=== PATIENT | female | born 1985 | race Caucasian/White ===

== ENCOUNTER 2017-04-27 21:34 | Emergency (ER) | payer OTHER ==
[~2017-04-27] VITALS: Ht 162.6 cm; Wt 77.1 kg
[~2017-04-27 21:34] MED LIST: MOTRIN
[2017-04-27 21:40] VITALS: BP 145/95
--- NOTE | 2017-04-27 21:54 | NUR ---
PT.AMBULATED TO ED [facility]
--- NOTE | 2017-04-27 21:55 | NUR ---
31/F CAME IN W C/O 09/27 SUPRAPUBIC PAIN, CONSTANT RADIATING TO LOWER ADB AND DYSURIA X 2 DAYS. DENIES HEMATURIA, FEVER/CHILLS, REPORTS N/VX1. ABD SOFT, ROUND, +TENDERNESS TO SUPRAPUBIC AREA. PMH: HEP C, ASTHMA
[2017-04-27 22:34] LABS: APPEARANCE,URINE CLEAR (CLEAR); BILIRUBIN,URINE NEGATIVE (NEGATIVE); BLOOD, URINE 1+ (NEGATIVE); COLOR,URINE YELLOW (YELLOW); LEUKOCYTE ESTERASE ,URINE NEGATIVE (NEGATIVE); NITRITE, URINE NEGATIVE (NEGATIVE); UGLUCOSE NEGATIVE (NEGATIVE)
[2017-04-27 22:55] VITALS: BP 128/76
--- NOTE | 2017-04-27 22:55 | NUR ---
Patient discharged with v/s stable. Written and verbal after care instructions given and explained. Patient alert, oriented and verbalized understanding of instructions. Ambulatory with steady gait. All questions addressed prior to discharge. ID band removed. Patient advised to follow up with PMD. Rx of BACTRIM DS given. Patient educated on indication of medication including possible reaction and side effects. Opportunity to ask questions provided and answered.
[2017-04-27 22:56] LABS: RBC,URINE 0-5 (RARE) /HPF (0-5)
== END 2017-04-27 22:55 | disposition home or self-care (01) ==
LOC: MED 21:34
DX: N39.0 Urinary tract infection, site not specified (principal); J45.909 Unspecified asthma, uncomplicated; F17.200 Nicotine dependence, unspecified, uncomplicated; Z88.0 Allergy status to penicillin
CPT/HCPCS: 81001; 81025; 87086; 87186; 99284

== ENCOUNTER 2017-08-06 19:31 | Emergency (ER) | payer OTHER ==
[~2017-08-06] VITALS: Ht 162.6 cm; Wt 90.7 kg
[2017-08-06 19:34] VITALS: BP 150/90
[2017-08-06] MEDS ORDERED: KETOROLAC 60 MG/2 ML VIAL IM ONE (19:55)
[2017-08-06 20:23] VITALS: BP 131/83
== END 2017-08-06 20:23 | disposition home or self-care (01) ==
LOC: MED 19:31
DX: N39.0 Urinary tract infection, site not specified (principal); J45.909 Unspecified asthma, uncomplicated; Z86.19 Personal history of other infectious and parasitic diseases; Z88.0 Allergy status to penicillin
CPT/HCPCS: 81002; 81025; 96372; 99283; J1885

== ENCOUNTER 2017-09-02 23:40 | Emergency (ER) | payer OTHER ==
[~2017-09-02] VITALS: Ht 162.6 cm; Wt 90.7 kg
[2017-09-02 23:52] VITALS: BP 130/72
[2017-09-03] MEDS ORDERED: ONDANSETRON 4 MG/2 ML VIAL IVP ONE (00:05)
[2017-09-03] MEDS ORDERED: NACL 0.9% 1,000 ML IV ONE (00:05)
[2017-09-03] MEDS ORDERED: MORPHINE SULFATE 4 MG/ML SYR IVP ONE (00:05)
[2017-09-03] MEDS ORDERED: KETOROLAC 30 MG/ML VIAL IVP ONE (00:10)
[2017-09-03 00:22] LABS: BASOPHILS # (AUTO) 0.1 K/uL (0.00-0.22); BASOPHILS % (AUTO) 0.5 % (0.0-2.0); EOSINOPHILS # (AUTO) 0.9 K/uL (0-0.4); EOSINOPHILS % (AUTO) 7.5 % (0.0-4.0); HEMATOCRIT 37.7 % (36-48); HEMOGLOBIN 12.2 g/dL (12.0-16.0); LYMPHOCYTES # (AUTO) 3.2 K/uL (2.5-16.5); LYMPHOCYTES % (AUTO) 27.3 % (20.5-51.1); MEAN CORPUSCULAR HEMOGLOBIN 29 pg (27-31); MEAN CORPUSCULAR HGB CONC 32 g/dL (33-37); MEAN CORPUSCULAR VOLUME 88.5 fL (80-94); MONOCYTES # (AUTO) 0.9 K/uL (0.8-1.0); MONOCYTES % (AUTO) 7.3 % (1.7-9.3); NEUTROPHILS # (AUTO) 6.7 K/uL (1.8-7.7); NEUTROPHILS % (AUTO) 57.4 % (42.2-75.2); PLATELET COUNT (AUTO) 290 K/uL (140-450); RED BLOOD CELL COUNT(AUTO) 4.26 MIL/uL (4.20-5.40); RED CELL DISTRIBUTION WIDTH 12.5 % (11.6-13.7); WHITE BLOOD COUNT (AUTO) 11.7 K/uL (4.8-10.8)
[2017-09-03 00:32] LABS: ANION GAP 18.1 (8-16); CARBON DIOXIDE 22.3 mmol/L (21-32); POTASSIUM 3.4 mmol/L (3.5-5.1)
[2017-09-03 00:38] LABS: ALBUMIN 3.9 g/dL (3.4-5.0); TOTAL BILIRUBIN 0.2 mg/dL (0.0-1.0)
[2017-09-03 00:48] LABS: APPEARANCE,URINE CLEAR (CLEAR); BILIRUBIN,URINE NEGATIVE (NEGATIVE); BLOOD, URINE TRACE-L (NEGATIVE); COLOR,URINE YELLOW (YELLOW); LEUKOCYTE ESTERASE ,URINE 1+ (NEGATIVE); NITRITE, URINE NEGATIVE (NEGATIVE); PH,URINE 6.5 (5.0-9.0); UGLUCOSE NEGATIVE (NEGATIVE)
[2017-09-03 00:54] LABS: RBC,URINE 0-5 (RARE) /HPF (0-5)
[2017-09-03 02:18] VITALS: BP 130/72
== END 2017-09-03 02:18 | disposition home or self-care (01) ==
LOC: MED 23:40
DX: R10.9 Unspecified abdominal pain (principal); R11.2 Nausea with vomiting, unspecified; J45.909 Unspecified asthma, uncomplicated; Z88.0 Allergy status to penicillin; Z90.89 Acquired absence of other organs
CPT/HCPCS: 36415; 74176; 80053; 81001; 81025; 83690; 85025; 87086; 96361; 96374; 96375; 99285; J1885; J2405

== ENCOUNTER 2017-09-04 19:14 | Emergency (ER) | payer OTHER ==
[~2017-09-04] VITALS: Ht 162.6 cm; Wt 89.8 kg
[2017-09-04 19:27] VITALS: BP 116/77
[2017-09-04] MEDS ORDERED: KETOROLAC 30 MG/ML VIAL IM ONE (20:20)
[2017-09-04 20:55] LABS: HEMOGLOBIN 11.9 g/dL (12.0-16.0); RED BLOOD CELL COUNT(AUTO) 4.14 MIL/uL (4.20-5.40); WHITE BLOOD COUNT (AUTO) 9.4 K/uL (4.8-10.8)
[2017-09-04 20:56] LABS: BASOPHILS % (AUTO) 0.1 % (0.0-2.0); EOSINOPHILS % (AUTO) 9.6 % (0.0-4.0); HEMATOCRIT 36.9 % (36-48); LYMPHOCYTES % (AUTO) 28.5 % (20.5-51.1); MEAN CORPUSCULAR HEMOGLOBIN 29 pg (27-31); MEAN CORPUSCULAR HGB CONC 32 g/dL (33-37); MEAN CORPUSCULAR VOLUME 89.2 fL (80-94); MONOCYTES % (AUTO) 6.8 % (1.7-9.3); PLATELET COUNT (AUTO) 277 K/uL (140-450); RED CELL DISTRIBUTION WIDTH 12.9 % (11.6-13.7)
[2017-09-04 20:57] LABS: EOSINOPHILS # (AUTO) 0.9 K/uL (0-0.4); LYMPHOCYTES # (AUTO) 2.7 K/uL (2.5-16.5); MONOCYTES # (AUTO) 0.6 K/uL (0.8-1.0); NEUTROPHILS # (AUTO) 5.2 K/uL (1.8-7.7)
[2017-09-04 21:01] LABS: APPEARANCE,URINE CLEAR (CLEAR); BILIRUBIN,URINE NEGATIVE (NEGATIVE); BLOOD, URINE TRACE (NEGATIVE); COLOR,URINE YELLOW (YELLOW); PH,URINE 6.5 (5.0-9.0); UGLUCOSE NEGATIVE (NEGATIVE)
[2017-09-04 21:02] LABS: LEUKOCYTE ESTERASE ,URINE 1+ (NEGATIVE); NITRITE, URINE NEGATIVE (NEGATIVE)
[2017-09-04 21:08] LABS: ANION GAP 14.3 (8-16); CARBON DIOXIDE 25.8 mmol/L (21-32); CREATININE 0.8 mg/dL (0.6-1.3); POTASSIUM 4.1 mmol/L (3.5-5.1)
[2017-09-04 21:09] LABS: ALBUMIN 3.7 g/dL (3.4-5.0); TOTAL BILIRUBIN 0.2 mg/dL (0.0-1.0)
[2017-09-04 21:21] LABS: RBC,URINE 0-5 (RARE) /HPF (0-5); WBC,URINE 0-5 (RARE) /HPF (0-5)
[2017-09-04 21:45] VITALS: BP 114/74
== END 2017-09-04 21:45 | disposition home or self-care (01) ==
LOC: MED 19:14
DX: N39.0 Urinary tract infection, site not specified (principal); R51 Headache; J45.909 Unspecified asthma, uncomplicated; Z90.89 Acquired absence of other organs; Z88.0 Allergy status to penicillin
CPT/HCPCS: 36415; 80053; 81001; 81025; 83690; 85025; 87086; 96372; 99284; J1885; Q0163

== ENCOUNTER 2017-11-11 11:01 | Emergency (ER) | payer OTHER ==
[~2017-11-11] VITALS: Ht 162.6 cm; Wt 89.8 kg
[2017-11-11 11:07] VITALS: BP 120/75
--- NOTE | 2017-11-11 11:17 | NUR ---
PT TAKEN VIA WHEELCHAIR TO BED 3
--- NOTE | 2017-11-11 11:18 | NUR ---
32YO F BIB SELF C/O RT FOOT PAIN X 3 DAYS AND BLADDER INCONTINECE X 1 MONTH. +CMS, THROBBING SHARP 8/10 PAIN WHILE WALKING, PT STATES SHE DID A 5K MARATHON AND FOOT STARTED HURTING AN HOUR LATER. PAIN FROM MID ARCH TO HEEL. ER MD MADE AWARE WILL CONTINUE TO MONITOR HX; DENIES RX; DENIES
--- NOTE | 2017-11-11 11:28 | NUR ---
DR NESS EVALUATING AT BEDSIDE
[2017-11-11] MEDS ORDERED: KETOROLAC 60 MG/2 ML VIAL IM ONE (11:30)
[2017-11-11 12:08] VITALS: BP 122/73
--- NOTE | 2017-11-11 12:08 | NUR ---
Patient discharged with v/s stable. Written and verbal after care instructions given and explained. Patient alert, oriented and verbalized understanding of instructions. Ambulatory with steady gait. All questions addressed prior to discharge. ID band removed. Patient advised to follow up with PMD. Rx of MOTRIN, CIPRO given. Patient educated on indication of medication including possible reaction and side effects. Opportunity to ask questions provided and answered.
== END 2017-11-11 12:08 | disposition home or self-care (01) ==
LOC: MED 11:01
DX: S90.32XA Contusion of left foot, initial encounter (principal); N39.0 Urinary tract infection, site not specified; J45.909 Unspecified asthma, uncomplicated; Z90.89 Acquired absence of other organs; Z88.0 Allergy status to penicillin; X58.XXXA Exposure to other specified factors, initial encounter; Y93.02 Activity, running; Y92.89 Other specified places as the place of occurrence of the external cause; Y99.8 Other external cause status
CPT/HCPCS: 81002; 81025; 96372; 99283; J1885

== ENCOUNTER 2017-12-04 11:35 | Emergency (ER) | payer OTHER ==
[~2017-12-04] VITALS: Ht 162.6 cm; Wt 90.3 kg
[2017-12-04 11:40] VITALS: BP 107/68
--- NOTE | 2017-12-04 11:50 | NUR ---
PT. CAME INTO THE ED DUE TO COUGH AND SORE THROAT X 4 DAYS. PT. STATES " I HAVE HAD THIS COUGH AND BEEN NAUSEOUS X 4 DAYS AND IT DOESNT GO AWAY". PT VOMITED ONCE THIS MORNING , DENIES ANY BLOOD IN VOMIT. RR EVEN AND UNLABORED. LS: CLEAR BILAT. UPON AUSCULTATION. AFEBRILE AT THIS TIME. EPIGASTRIC PAIN PER PT DUE TO "NAUSEA". 7/10 PAIN IN THROAT THAT IS THROBBING AND NON RADIATING. ER MD NOTIFIED. SAFETY PRECAUTIONS IMPLEMENTED. WILL CONTINUE TO MONITOR.
[2017-12-04] MEDS ORDERED: ONDANSETRON 4 MG ODT PO ONE (11:55)
--- NOTE | 2017-12-04 13:09 | NUR ---
PT. RESTING COMFORTABLY IN BED, RR EVEN AND UNLABORED. WILL CONTINUE TO MONITOR
[2017-12-04] MEDS ORDERED: DEXAMETHASONE 10 MG/ML VIAL IM ONE (13:20)
--- NOTE | 2017-12-04 14:14 | NUR ---
PENDING D/C ; DISCHARGE PAPERWORK NOT AVAILABLE AT THIS TIME.
[2017-12-04 14:34] VITALS: BP 135/79
--- NOTE | 2017-12-04 14:36 | NUR ---
Patient discharged with v/s stable. Written and verbal after care instructions given and explained. Patient alert, oriented and verbalized understanding of instructions. Ambulatory with steady gait. All questions addressed prior to discharge. ID band removed. Patient advised to follow up with PMD. Rx of MEDROL, IBUPROFEN, ZITHROMAX, ROBITUSSIN given. Patient educated on indication of medication including possible reaction and side effects. Opportunity to ask questions provided and answered.
== END 2017-12-04 14:36 | disposition home or self-care (01) ==
LOC: MED 11:35
DX: J20.9 Acute bronchitis, unspecified (principal); J45.909 Unspecified asthma, uncomplicated; Z88.0 Allergy status to penicillin
CPT/HCPCS: 87081; 96372; 99284; J1100; Q0162

== ENCOUNTER 2018-02-24 13:36 | Emergency (ER) | payer OTHER ==
[~2018-02-24] VITALS: Ht 162.6 cm; Wt 90.4 kg
[2018-02-24 14:23] VITALS: BP 141/56
[2018-02-24 16:36] VITALS: BP 134/78
== END 2018-02-24 16:35 | disposition home or self-care (01) ==
LOC: MED 13:36
DX: J02.9 Acute pharyngitis, unspecified (principal); R52 Pain, unspecified; R19.7 Diarrhea, unspecified; J45.909 Unspecified asthma, uncomplicated; Z88.0 Allergy status to penicillin; Z79.1 Long term (current) use of non-steroidal anti-inflammatories (NSAID)
CPT/HCPCS: 36415; 81025; 87081; 87804; 99283

== ENCOUNTER 2018-04-11 09:25 | Day surgery (SDC) | payer OTHER ==
[~2018-04-11] VITALS: Ht 162.6 cm; Wt 88.0 kg
[2018-04-11] MEDS ORDERED: LIDOCAINE 2% 1000 MG/50 ML VIAL INJ ONE (10:46)
[2018-04-11] MEDS ORDERED: fentaNYL 0.05 MG/ML VIAL ONE (10:49)
[2018-04-11] MEDS ORDERED: fentaNYL 0.05 MG/ML VIAL IVP ONE ×2 (11:15→11:35)
== END 2018-04-11 12:25 | disposition home or self-care (01) ==
LOC: MMU 09:25 → MDS 09:25
PROVIDERS: ATTEND Internal Medicine Gastroenterology
DX: B18.2 Chronic viral hepatitis C (principal); J45.909 Unspecified asthma, uncomplicated; E66.9 Obesity, unspecified; E78.5 Hyperlipidemia, unspecified; F12.11 Cannabis abuse, in remission; M41.9 Scoliosis, unspecified; Z68.33 Body mass index [BMI] 33.0-33.9, adult; Z98.890 Other specified postprocedural states; Z87.891 Personal history of nicotine dependence; Z88.0 Allergy status to penicillin; Z90.49 Acquired absence of other specified parts of digestive tract
CPT/HCPCS: 47000; 76942; 81025; 88307; 88313; J2001; J3010; Q0092

== ENCOUNTER 2018-12-30 11:23 | Emergency (ER) | payer OTHER ==
[~2018-12-30] VITALS: Ht 162.6 cm; Wt 87.5 kg
[2018-12-30 11:34] VITALS: BP 103/55
--- NOTE | 2018-12-30 11:38 | NUR ---
PATIENT AMBULATED TO BED 5.
--- NOTE | 2018-12-30 12:04 | NUR ---
Patient being evaluated by DR MORRELL at bedside.
[2018-12-30] MEDS ORDERED: predniSONE 20 MG TAB PO ONE (12:05)
[2018-12-30] MEDS ORDERED: ALBUTEROL 0.083% 2.5 MG/3 ML NEBU INH ONE (12:05)
[2018-12-30] MEDS ORDERED: IPRATROPIUM 0.02% 0.5 MG/2.5 ML NEBU INH ONE (12:05)
--- NOTE | 2018-12-30 12:11 | NUR ---
PT PRESENTS TO THE ED WITH C/O CHEST DISCOMFORT/TIGHTNESS X 1 DAY. PT STATES THAT SHE HAD AN ASTHMA ATTACK LAST NIGHT. PT STATES THAT HER CHEST IS SORE AND "TIGHT" AND RATES PAIN 8/10 AT THIS TIME. PT REPORTS TAKING NO MEDICATION TODAY. PT STATES THAT SHE HAS HAD DIARRHEA X 4 DAYS, DENEIS N/V. BOWEL SOUNDS ACTIVE ALL 4 QUADRANTS, LAST BM 12/29/18. PT REPORTS HAVING A PRODUCTIVE COUGH WITH GREEN PHLEGM. PT POSITIONED FOR COMFORT, BED RAIL UP X 1. ER MD AWARE OF PT STATUS. ALLERGY: PENICILLIN HX: ASTHMA RX: ALBUTEROL
--- NOTE | 2018-12-30 12:12 | NUR ---
RESPIRATORY AT BEDSIDE.
[2018-12-30] MEDS ORDERED: ACETAMINOPHEN 325 MG TAB PO ONE (12:15)
--- NOTE | 2018-12-30 13:10 | NUR ---
PT SLEEPING, ABLE TO VISUALIZE RISE AND FALL OF CHEST. WILL CONTINUE TO MONITOR.
--- NOTE | 2018-12-30 14:02 | NUR ---
Patient discharged with v/s stable. Written and verbal after care instructions given and explained. Patient alert, oriented and verbalized understanding of instructions. Ambulatory with steady gait. All questions addressed prior to discharge. ID band removed. Patient advised to follow up with PMD. Rx of PROMETHAZINE AND PREDNISONE given. Patient educated on indication of medication including possible reaction and side effects. Opportunity to ask questions provided and answered.
[2018-12-30 14:03] VITALS: BP 103/55
== END 2018-12-30 14:02 | disposition home or self-care (01) ==
LOC: MED 11:23
DX: J45.909 Unspecified asthma, uncomplicated (principal); Z88.0 Allergy status to penicillin
CPT/HCPCS: 94640; 99283; J7512; J7613; J7644

== ENCOUNTER 2019-02-06 13:18 | Emergency (ER) | payer OTHER ==
[~2019-02-06] VITALS: Ht 162.6 cm; Wt 84.4 kg
[2019-02-06 13:28] VITALS: BP 111/72
--- NOTE | 2019-02-06 13:42 | NUR ---
PATIENT PRESENTS TO ED WITH NON-PRURITIC RASHES ON RIGHT FLANK AREA. PAIN DESCRIBED SHARP, 9/10. NO MEDICATIONS TAKEN. PT ALSO COMPLAINS OF FLU-LIKE SYMPTOMS AND PRODUCTIVE COUGH. DENIES FEVER AND ANY URINARY PROBLEMS. UPON ASSESSMENT, MULTIPLE ROUND LESIONS ON RIGHT FLANK ARE SCALY AND DRY WITH NO DISCHARGE NOTED. LUNGS CLEAR BL; HR EVEN AND REGULAR; VSS; PATIENT POSITIONED FOR COMFORT; HOB ELEVATED; BEDRAILS UP X2; BED DOWN. ER MD MADE AWARE OF PT STATUS. PMH: ASTHMA, HEP C, HERPES. PT UNABLE TO RECALL HX OF CHICKEN POX MEDS: ALBUTEROL ALLERGY: PENICILLIN
[2019-02-06] MEDS ORDERED: KETOROLAC 30 MG/ML VIAL IM ONE (14:00)
[2019-02-06 14:38] VITALS: BP 111/72
== END 2019-02-06 14:38 | disposition home or self-care (01) ==
LOC: MED 13:18
DX: B02.9 Zoster without complications (principal); J45.909 Unspecified asthma, uncomplicated; Z88.0 Allergy status to penicillin
CPT/HCPCS: 96372; 99283; J1885

== ENCOUNTER 2019-03-06 13:55 | Emergency (ER) | payer OTHER ==
[~2019-03-06] VITALS: Ht 162.6 cm; Wt 81.6 kg
[2019-03-06 14:01] VITALS: BP 113/56
--- NOTE | 2019-03-06 14:05 | NUR ---
STREP THROAT SWAB COLLECTED
--- NOTE | 2019-03-06 14:10 | NUR ---
33/F BIB SELF C/O SORE THROAT, BODY ACHES X 2 DAYS. DENIES N/V/D; SKIN IS PINK/WARM/DRY; AAOX4 WITH EVEN AND STEADY GAIT; LUNGS CLEAR BL; HR EVEN AND REGULAR; PT DENIES ANY FEVER, CP, SOB, OR COUGH AT THIS TIME; PATIENT STATES PAIN OF 9/10 AT THIS TIME. PATIENT POSITIONED FOR COMFORT; HOB ELEVATED; BEDRAILS UP X1; BED DOWN. ER MD MADE AWARE OF PT STATUS.
[2019-03-06] MEDS ORDERED: IBUPROFEN 600 MG TAB PO ONE (14:25)
[2019-03-06 14:50] VITALS: BP 117/62
--- NOTE | 2019-03-06 14:50 | NUR ---
Patient discharged with v/s stable. Written and verbal after care instructions given and explained. Patient alert, oriented and verbalized understanding of instructions. Ambulatory with steady gait. All questions addressed prior to discharge. ID band removed. Patient advised to follow up with PMD. Rx of PHENOZOPYRIDINE HCL, NITROFURANTOIN & CEPACOL SENSATIONS HYDRA given. Patient educated on indication of medication including possible reaction and side effects. Opportunity to ask questions provided and answered.
== END 2019-03-06 14:50 | disposition home or self-care (01) ==
LOC: MED 13:55
DX: B34.9 Viral infection, unspecified (principal); R30.0 Dysuria; J45.909 Unspecified asthma, uncomplicated; Z88.0 Allergy status to penicillin
CPT/HCPCS: 81002; 81025; 87081; 99283

== ENCOUNTER 2019-03-30 15:24 | Emergency (ER) | payer OTHER ==
[~2019-03-30] VITALS: Ht 160 cm; Wt 83.9 kg
[2019-03-30 15:45] VITALS: BP 116/67
--- NOTE | 2019-03-30 16:18 | NUR ---
33 Y/O FEMALE PRESENTS WITH FLU LIKE SYMPTOMS, ABD PAIN, BODY ACHES, NAUSEA, VOMITING X1 DAY. PT REPORTS THAT EVERYONE IN HER HOUSEHOLD HAS GOTTEN THE FLU. DENIES SOB/CHEST PAIN. PT REPORTS STARTING TO COUGH YESTERDAY ALSO. RESP EVEN AND UNLABORED. LUNG SOUNDS CLEAR IN BILAT LOBES. BOWEL SOUNDS NORMO ACTIVE IN ALL QUADRANTS. CAP REFILL <3. AAOX4. PMH: HEP C NKA
[2019-03-30] MEDS ORDERED: ACETAMINOPHEN EXTRA STRENGTH 500 MG TAB PO ONE (16:30)
[2019-03-30] MEDS ORDERED: ONDANSETRON 4 MG ODT PO ONE (16:30)
[2019-03-30 16:36] VITALS: BP 116/67
--- NOTE | 2019-03-30 16:37 | NUR ---
Patient discharged with v/s stable. Written and verbal after care instructions given and explained. Patient alert, oriented and verbalized understanding of instructions. Ambulatory with steady gait. All questions addressed prior to discharge. ID band removed. Patient advised to follow up with PMD. Rx of IBUPROFEN, TAMIFLU, PROMETHAZINE, ZOFRAN given. Patient educated on indication of medication including possible reaction and side effects. Opportunity to ask questions provided and answered.
== END 2019-03-30 16:37 | disposition home or self-care (01) ==
LOC: MED 15:24
DX: B34.9 Viral infection, unspecified (principal); J45.909 Unspecified asthma, uncomplicated; Z88.0 Allergy status to penicillin; Z86.19 Personal history of other infectious and parasitic diseases
CPT/HCPCS: 81025; 99283; Q0162

== ENCOUNTER 2019-08-04 13:33 | Emergency (ER) | payer OTHER ==
[~2019-08-04] VITALS: Ht 162.6 cm; Wt 86.2 kg
[2019-08-04 13:53] VITALS: BP 107/71
--- NOTE | 2019-08-04 14:07 | NUR ---
33 Y/O FEMALE FROM HOME C/O ABD PAIN WITH NAUSEA AND VOMITING SINCE YESTERDAY. PT STATES 8/10 SHARP PAIN IN ABD. BOWEL SOUNDS X 4 QUAD. DENIES DIARRHEA. DENIES FEVER. MILD HEADACHE SINCE VOMITING BEGAN. STATES SHE HAS NOT TAKEN ANY MEDICATIONS TODAY. ABD SOFT, ROUND, NONTENDER TO PALP. AWAKE AND ALERT. POSITIONED FOR COMFORT. MEDHX: HEP C ALLERGIES: PENICILLIN
--- NOTE | 2019-08-04 14:20 | NUR ---
DR MORRELL AT BEDSIDE EXAMINING PT
[2019-08-04] MEDS ORDERED: MORPHINE SULFATE 2 MG/ML SYR IVP ONE (14:25)
[2019-08-04] MEDS ORDERED: NACL 0.9% 1,000 ML IV SCH (14:25)
[2019-08-04] MEDS ORDERED: ONDANSETRON 4 MG/2 ML VIAL IVP ONE (14:25)
--- NOTE | 2019-08-04 14:38 | NUR ---
ULTRASOUND AT BEDSIDE
[2019-08-04 15:11] LABS: BASOPHILS % (AUTO) 0.5 % (0.0-2.0); EOSINOPHILS # (AUTO) 1.5 K/uL (0-0.4); EOSINOPHILS % (AUTO) 16.9 % (0.0-4.0); HEMATOCRIT 37.4 % (36-48); LYMPHOCYTES # (AUTO) 2.4 K/uL (2.5-16.5); LYMPHOCYTES % (AUTO) 27.4 % (20.5-51.1); MEAN CORPUSCULAR HEMOGLOBIN 29 pg (27-31); MEAN CORPUSCULAR HGB CONC 32 g/dL (33-37); MEAN CORPUSCULAR VOLUME 91.6 fL (80-94); MONOCYTES # (AUTO) 0.6 K/uL (0.8-1.0); MONOCYTES % (AUTO) 7.4 % (1.7-9.3); NEUTROPHILS # (AUTO) 4.2 K/uL (1.8-7.7); NEUTROPHILS % (AUTO) 47.8 % (42.2-75.2); PLATELET COUNT (AUTO) 282 K/uL (140-450); RED BLOOD CELL COUNT(AUTO) 4.09 MIL/uL (4.20-5.40); RED CELL DISTRIBUTION WIDTH 14.1 % (11.6-13.7); WHITE BLOOD COUNT (AUTO) 8.7 K/uL (4.8-10.8)
[2019-08-04 15:23] LABS: BILIRUBIN,URINE NEGATIVE (NEGATIVE); BLOOD, URINE 3+ (NEGATIVE); COLOR,URINE RED (YELLOW); LEUKOCYTE ESTERASE ,URINE NEGATIVE (NEGATIVE); NITRITE, URINE NEGATIVE (NEGATIVE); PH,URINE 5.5 (5.0-9.0); UGLUCOSE NEGATIVE (NEGATIVE)
[2019-08-04 15:24] LABS: APPEARANCE,URINE CLEAR (CLEAR)
[2019-08-04 15:31] LABS: ALBUMIN 3.5 g/dL (3.4-5.0); ANION GAP 11.5 (8-16); CARBON DIOXIDE 27.2 mmol/L (21-32); CREATININE 0.7 mg/dL (0.6-1.3); POTASSIUM 3.7 mmol/L (3.5-5.1); TOTAL BILIRUBIN 0.3 mg/dL (0.0-1.0)
--- NOTE | 2019-08-04 15:31 | NUR ---
PT STATES DECREASE IN PAIN AFTER MORPHINE IV PUSH. /10 TOLERABLE ABD PAIN AT THIS TIME.
[2019-08-04 16:51] VITALS: BP 112/69
--- NOTE | 2019-08-04 16:51 | NUR ---
Patient discharged with v/s stable. Written and verbal after care instructions given and explained. Patient alert, oriented and verbalized understanding of instructions. Ambulatory with steady gait. All questions addressed prior to discharge. ID band removed. Patient advised to follow up with PMD. Rx of OMEPRAZOLE 40MG AND ZOFRAN 4MG given. Patient educated on indication of medication including possible reaction and side effects. Opportunity to ask questions provided and answered.
[2019-08-04 17:27] LABS: RBC,URINE NONE SEEN /HPF (0-5); WBC,URINE NONE SEEN /HPF (0-5)
== END 2019-08-04 16:51 | disposition home or self-care (01) ==
LOC: MED 13:33
DX: K29.70 Gastritis, unspecified, without bleeding (principal); R11.2 Nausea with vomiting, unspecified; R51 Headache; J45.909 Unspecified asthma, uncomplicated; Z88.0 Allergy status to penicillin; Z86.19 Personal history of other infectious and parasitic diseases
CPT/HCPCS: 36415; 76705; 80053; 81001; 81025; 83605; 83690; 85025; 87040; 96361; 96374; 96375; 99284; J2270; J2405; J7030; Q0092

== ENCOUNTER 2019-08-14 14:56 | Emergency (ER) | payer OTHER, SELFPAY ==
[~2019-08-14] VITALS: Ht 162.6 cm; Wt 81.6 kg
[2019-08-14 15:09] VITALS: BP 101/60
[2019-08-14 15:57] VITALS: BP 101/60
--- NOTE | 2019-08-14 15:57 | NUR ---
PT SEEN AND D/C BY KATIANA LOWE. NO NURSING CARE GIVEN.
--- NOTE | 2019-08-14 15:57 | NUR ---
Patient discharged with v/s stable. Written and verbal after care instructions given and explained. Patient alert, oriented and verbalized understanding of instructions. Ambulatory with steady gait. All questions addressed prior to discharge. ID band removed. Patient advised to follow up with PMD. Rx of IBUPROFEN AND TASSALON PERLES given. Patient educated on indication of medication including possible reaction and side effects. Opportunity to ask questions provided and answered.
== END 2019-08-14 15:57 | disposition home or self-care (01) ==
LOC: EEVIPCON 14:56 → MED 14:56
DX: J06.9 Acute upper respiratory infection, unspecified (principal); J45.909 Unspecified asthma, uncomplicated; Z88.0 Allergy status to penicillin; Z90.49 Acquired absence of other specified parts of digestive tract
CPT/HCPCS: 99283

== ENCOUNTER 2019-10-14 09:38 | Emergency (ER) | payer OTHER, SELFPAY ==
[~2019-10-14] VITALS: Ht 162.6 cm; Wt 90.7 kg
[2019-10-14 09:41] VITALS: BP 126/69
[2019-10-14] MEDS ORDERED: KETOROLAC 60 MG/2 ML VIAL IM ONE (10:30)
[2019-10-14 10:52] VITALS: BP 126/69
== END 2019-10-14 10:53 | disposition home or self-care (01) ==
LOC: MED 09:38
DX: N93.8 Other specified abnormal uterine and vaginal bleeding (principal); N39.0 Urinary tract infection, site not specified; J45.909 Unspecified asthma, uncomplicated; Z88.0 Allergy status to penicillin; Z90.49 Acquired absence of other specified parts of digestive tract
CPT/HCPCS: 81002; 81025; 96372; 99283; J1885

== ENCOUNTER 2019-11-18 17:28 | Emergency (ER) | payer OTHER, SELFPAY ==
[~2019-11-18] VITALS: Ht 139.7 cm; Wt 99.8 kg
[2019-11-18 17:31] VITALS: BP 129/99
--- NOTE | 2019-11-18 17:35 | NUR ---
PT STATES SHES BEEN HAVING ABNORMAL VAGINAL BLEEDING SINCE JULY DUE TO HER RIGHT OVARIAN CYST, HAS BEEN TAKING 3 PROVERAS DAILY, AND IS SCHEDULED TO HAVE A HYSTERECTOMY DEC 09, BUT PRESENTS TO ER WITH 9/10 SUPRAPUBIC PAIN THAT BEGAN LAST NIGHT. PT STATES TODAY BLEEDING IS SCANT AND ONLY ONE PAD CHANGED TODAY.
[2019-11-18] MEDS: KETOROLAC 60 MG/2 ML VIAL IM ONE ×2 (17:54→18:04)
[2019-11-18 18:04] VITALS: BP 118/89
--- NOTE | 2019-11-18 18:04 | NUR ---
Patient discharged with v/s stable. Written and verbal after care instructions given and explained. Patient alert, oriented and verbalized understanding of instructions. Ambulatory with steady gait. All questions addressed prior to discharge. ID band removed. Patient advised to follow up with PMD. Rx of Naproxen and Macrobid given. Patient educated on indication of medication including possible reaction and side effects. Opportunity to ask questions provided and answered.
== END 2019-11-18 18:04 | disposition home or self-care (01) ==
LOC: MED 17:28
DX: N39.0 Urinary tract infection, site not specified (principal); B19.20 Unspecified viral hepatitis C without hepatic coma; J45.909 Unspecified asthma, uncomplicated; Z88.0 Allergy status to penicillin; Z90.49 Acquired absence of other specified parts of digestive tract
CPT/HCPCS: 81002; 81025; 96372; 99283; J1885

== ENCOUNTER 2019-12-05 18:49 | Emergency (ER) | payer OTHER ==
[~2019-12-05] VITALS: Ht 162.6 cm; Wt 103.4 kg
[2019-12-05 19:22] VITALS: BP 127/69
--- NOTE | 2019-12-05 19:26 | NUR ---
PT AMBULATED TO BED 05 WITH STEADY GAIT.
--- NOTE | 2019-12-05 19:45 | NUR ---
34 Y/O FEMALE C/O PELVIC PAIN X YESTERDAY. PT STATES CONTINUOUS 10/10 DULL/SHARP PAIN. TOOK NAPROSYN WITH NO RELIEF. ABD SOFT NON TENDER. LUNG SOUNDS CLEAR. VSS. MHX: ASTHMA, UTERINE BLEEDING, FIBROIDS, OVARIAN CYST. ALLERGIES: PCN
--- NOTE | 2019-12-05 19:51 | NUR ---
Dr. Ngo examining patient.
--- NOTE | 2019-12-05 19:52 | NUR ---
Sergio pack in EDM - 12/05/19 at 1952 by [email or web address] ERMD AT BEDSIDE EVALUATING PT
[2019-12-05] MEDS ORDERED: KETOROLAC 60 MG/2 ML VIAL IM ONE (19:55)
[2019-12-05 20:20] VITALS: BP 127/69
--- NOTE | 2019-12-05 20:20 | NUR ---
Patient discharged with v/s stable. Written and verbal after care instructions given and explained. Patient alert, oriented and verbalized understanding of instructions. Ambulatory with steady gait. All questions addressed prior to discharge. ID band removed. Patient advised to follow up with PMD. Rx of ALBUTEROL AND NORCO given. Patient educated on indication of medication including possible reaction and side effects. Opportunity to ask questions provided and answered.
== END 2019-12-05 20:20 | disposition home or self-care (01) ==
LOC: MED 18:49
DX: R10.31 Right lower quadrant pain (principal); J45.909 Unspecified asthma, uncomplicated; D21.9 Benign neoplasm of connective and other soft tissue, unspecified; Z90.49 Acquired absence of other specified parts of digestive tract; Z88.0 Allergy status to penicillin
CPT/HCPCS: 81002; 81025; 96372; 99283; J1885

== ENCOUNTER 2020-01-11 12:44 | Emergency (ER) | payer OTHER ==
[~2020-01-11] VITALS: Ht 162.6 cm; Wt 90.7 kg
[2020-01-11 12:58] VITALS: BP 132/106
--- NOTE | 2020-01-11 13:02 | NUR ---
COVID SWAB SENT TO LAB.
--- NOTE | 2020-01-11 13:10 | NUR ---
C/O COUGH, RIBERA, BODY ACHE 4/10X YESTERDAY. FAMILY HAD COVID TESTED+. MED HX: ASTHMA, HYSTERECTOMY
[2020-01-11 14:46] VITALS: BP 132/106
--- NOTE | 2020-01-11 14:46 | NUR ---
Patient discharged with v/s stable. Written and verbal after care instructions given and explained. Patient verbalized understanding. Ambulatory with steady gait. All questions addressed prior to discharge. Advised to follow up with PMD.
--- NOTE | 2020-01-12 20:17 | NUR ---
Positive COVID-19 test results were received from lab. A copy of the test results were given to Infection
== END 2020-01-11 14:46 | disposition home or self-care (01) ==
LOC: MED 12:44
DX: R06.2 Wheezing (principal); Z20.828 Contact with and (suspected) exposure to other viral communicable diseases; J45.909 Unspecified asthma, uncomplicated; Z88.0 Allergy status to penicillin
CPT/HCPCS: 99283; U0003

== ENCOUNTER 2020-03-17 16:24 | Emergency (ER) | payer OTHER ==
[~2020-03-17] VITALS: Ht 162.6 cm; Wt 99.8 kg
[2020-03-17 16:31] VITALS: BP 122/68
--- NOTE | 2020-03-17 16:36 | NUR ---
Pt ambulated to chair A for further evaluation.
--- NOTE | 2020-03-17 16:47 | NUR ---
34 Y/O FEMALE C/O PAINFUL URRINATION,LOWER BACK PAIN, RIBERA X 2 DAYS. COVID TESTED IN DECEMBER : POSITIVE JANUARY: NEGATIVE. PMH: ASTHMA, HYSTERECTOMY Allergies to PCN
--- NOTE | 2020-03-17 16:54 | NUR ---
KATIANA CONTE AT PT BEDSIDE.
[2020-03-17 16:57] VITALS: BP 122/68
--- NOTE | 2020-03-17 16:57 | NUR ---
Patient discharged with v/s stable. Written and verbal after care instructions given and explained. Patient alert, oriented and verbalized understanding of instructions. Ambulatory with steady gait. All questions addressed prior to discharge. ID band removed. Patient advised to follow up with PMD. Rx of Nitrofuratoin 100mg and Ibuprofen 600mg given. Patient educated on indication of medication including possible reaction and side effects. Opportunity to ask questions provided and answered.
== END 2020-03-17 16:57 | disposition home or self-care (01) ==
LOC: MED 16:24
DX: N39.0 Urinary tract infection, site not specified (principal); J45.909 Unspecified asthma, uncomplicated; Z88.0 Allergy status to penicillin
CPT/HCPCS: 81002; 81025; 99283

== ENCOUNTER 2020-07-26 11:57 | Emergency (ER) | payer OTHER ==
[~2020-07-26] VITALS: Ht 165.1 cm; Wt 90.7 kg
[2020-07-26 11:57] VITALS: BP 107/62
[2020-07-26] MEDS ORDERED: KETOROLAC 30 MG/ML VIAL IM ONE (12:05)
[2020-07-26] MEDS ORDERED: IBUP-2213 PO (12:36)
[2020-07-26 12:55] VITALS: BP 110/64
== END 2020-07-26 12:55 | disposition home or self-care (01) ==
LOC: MED 11:57
DX: S93.402A Sprain of unspecified ligament of left ankle, initial encounter (principal); J45.909 Unspecified asthma, uncomplicated; Z88.0 Allergy status to penicillin; Z90.710 Acquired absence of both cervix and uterus; Z79.899 Other long term (current) drug therapy; X58.XXXA Exposure to other specified factors, initial encounter; Y93.89 Activity, other specified; Y92.89 Other specified places as the place of occurrence of the external cause; Y99.8 Other external cause status
CPT/HCPCS: 73610; 96372; 99283; J1885

== ENCOUNTER 2020-08-17 11:14 | Emergency (ER) | payer OTHER ==
[~2020-08-17] VITALS: Ht 162.6 cm; Wt 106.1 kg
[~2020-08-17 11:14] MED LIST changes: +IBUP-2213 PO; -MOTRIN
[2020-08-17 11:20] VITALS: BP 110/73
[2020-08-17] MEDS ORDERED: LORA1T1237 PO (12:32)
[2020-08-17] MEDS ORDERED: IBUP-1842 PO (12:32)
[2020-08-17 12:45] VITALS: BP 110/73
== END 2020-08-17 12:46 | disposition home or self-care (01) ==
LOC: MED 11:14
DX: B34.9 Viral infection, unspecified (principal); J45.909 Unspecified asthma, uncomplicated; Z88.0 Allergy status to penicillin; Z79.899 Other long term (current) drug therapy
CPT/HCPCS: 99282

== ENCOUNTER 2020-12-06 11:50 | Emergency (ER) | payer OTHER ==
[~2020-12-06] VITALS: Ht 162.6 cm; Wt 99.8 kg
[~2020-12-06 11:50] MED LIST changes: +IBUP-1842 PO; +LORA1T1237 PO
[2020-12-06 12:09] VITALS: BP 129/86
--- NOTE | 2020-12-06 12:12 | NUR ---
PT TO WAIT IN LOBBY.
--- NOTE | 2020-12-06 13:46 | NUR ---
DR. MORRELL AT PT BEDSIDE FOR FURTHER EVALUATION.
--- NOTE | 2020-12-06 14:07 | NUR ---
STREP, COVID RAPID SWAB DONE.
[2020-12-06] MEDS ORDERED: NAPR-1704 PO (14:58)
[2020-12-06] MEDS ORDERED: PHEN177S23 PO (14:58)
[2020-12-06 15:07] VITALS: BP 125/81
--- NOTE | 2020-12-06 15:08 | NUR ---
Patient discharged with v/s stable. Written and verbal after care instructions given and explained. Patient alert, oriented and verbalized understanding of instructions. Ambulatory with steady gait. All questions addressed prior to discharge. ID band removed. Patient advised to follow up with PMD. Rx of NAPROXEN, AND PHENOL given. Patient educated on indication of medication including possible reaction and side effects. Opportunity to ask questions provided and answered.
== END 2020-12-06 15:08 | disposition home or self-care (01) ==
LOC: MED 11:50
DX: J02.9 Acute pharyngitis, unspecified (principal); R05.9 Cough, unspecified; R59.0 Localized enlarged lymph nodes; Z20.822 Contact with and (suspected) exposure to COVID-19
CPT/HCPCS: 87081; 99283

== ENCOUNTER 2020-12-10 20:45 | Emergency (ER) | payer OTHER ==
[~2020-12-10] VITALS: Ht 162.6 cm; Wt 90.7 kg
[~2020-12-10 20:45] MED LIST changes: +NAPR-1704 PO; +PHEN177S23 PO
[2020-12-10 20:49] VITALS: BP 124/76
--- NOTE | 2020-12-10 20:58 | NUR ---
TO LOBBY A/W BED AMBULATORY
--- NOTE | 2020-12-10 22:15 | NUR ---
SEEN AND EXAMINED BY MIAH
[2020-12-10] MEDS ORDERED: PYR100 PO (22:41)
[2020-12-10] MEDS ORDERED: ONDA-24 PO (22:41)
[2020-12-10] MEDS ORDERED: NITR100C7 PO (22:41)
[2020-12-10 22:45] VITALS: BP 119/81
--- NOTE | 2020-12-10 22:45 | NUR ---
Patient discharged with v/s stable. Written and verbal after care instructions given and explained. Patient alert, oriented and verbalized understanding of instructions. Ambulatory with steady gait. All questions addressed prior to discharge. ID band removed. Patient advised to follow up with PMD. Rx of ZOFRAN , MACROBID, PYRIDUIM given. Patient educated on indication of medication including possible reaction and side effects. Opportunity to ask questions provided and answered.
[2020-12-11 02:49] LABS: APPEARANCE,URINE CLEAR (CLEAR); BILIRUBIN,URINE NEGATIVE (NEGATIVE); BLOOD, URINE TRACE-I (NEGATIVE); COLOR,URINE YELLOW (YELLOW); LEUKOCYTE ESTERASE ,URINE NEGATIVE (NEGATIVE); NITRITE, URINE NEGATIVE (NEGATIVE); UGLUCOSE NEGATIVE (NEGATIVE)
[2020-12-11 03:02] LABS: RBC,URINE 0-5 /HPF (0-5); WBC,URINE 0-5 /HPF (0-5)
== END 2020-12-10 22:45 | disposition home or self-care (01) ==
LOC: MED 20:45
DX: N39.0 Urinary tract infection, site not specified (principal); J45.909 Unspecified asthma, uncomplicated; Z90.710 Acquired absence of both cervix and uterus; Z79.1 Long term (current) use of non-steroidal anti-inflammatories (NSAID); Z79.899 Other long term (current) drug therapy; Z88.0 Allergy status to penicillin
CPT/HCPCS: 81001; 81025; 99283

== ENCOUNTER 2021-02-02 11:32 | Emergency (ER) | payer OTHER ==
[~2021-02-02] VITALS: Ht 162.6 cm; Wt 98.0 kg
[~2021-02-02 11:32] MED LIST changes: +NITR100C7 PO; +ONDA-188 PO; +PYR100 PO
[2021-02-02 11:48] VITALS: BP 133/73
--- NOTE | 2021-02-02 12:23 | NUR ---
Sergio pack in ED - 02/02/21 at 1227 by [email or web address] PT AMBULATED TO ER BED 6
--- NOTE | 2021-02-02 12:26 | NUR ---
pt ambulated to bed 06
--- NOTE | 2021-02-02 12:31 | NUR ---
urine in dirty utility
[2021-02-02] MEDS ORDERED: ONDANSETRON 4 MG/2 ML VIAL IVP ONE (12:50)
[2021-02-02] MEDS ORDERED: NACL 0.9% 1,000 ML IV ONE (12:50)
--- NOTE | 2021-02-02 12:50 | NUR ---
35 Y/O FEMALE C/O NAUSEA, VOMITING, CHILLS, AND HEADACHE XYESTERDAY. 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 PT REPORTS SHE IS NOT ABLE TO KEEP ANYTHING DOWN. X9 EPISODES OF VOMITING. DENIES BLOOD IN VOMIT. PT DENIES DIARRHEA. PT DENIES SOB/CHEST PAIN. PT DENIES ABDOMINAL PAIN BUT REPORTS DISCOMFORT FROM THROWING UP SO MUCH. DENIES URINARY SYMPTOMS. DENIES TAKING ANYTHING AT HOME. PT A/O X4 WITH EVEN AND UNLABORED RESPIRATIONS PMH:ASTHMA, HEP C ALLERGIES:PCN
--- NOTE | 2021-02-02 13:10 | NUR ---
DR PACHECO AT BEDSIDE EVALUATING PT
--- NOTE | 2021-02-02 14:24 | NUR ---
PT RESTING IN BED WITH EVEN AND UNLABORED RESPIRATIONS. PT DENIES ANY PAIN AT THIS TIME. PT STATES SHE FEELS BETTER. ALL NEEDS MET AT THIS TIME
[2021-02-02] MEDS ORDERED: ONDA4TAB PO (15:21)
--- NOTE | 2021-02-02 15:30 | NUR ---
PT PROVIDED CUP OF WATER, PT TOLERATED WELL. DENIES NAUSEA.
[2021-02-02 15:36] VITALS: BP 113/62
--- NOTE | 2021-02-02 15:43 | NUR ---
Patient discharged with v/s stable. Written and verbal after care instructions ABOUT VIRAL GASTROENTERITIS given and explained. Patient alert, oriented and verbalized understanding of instructions. Ambulatory with steady gait. All questions addressed prior to discharge. ID band removed. Patient advised to follow up with PMD. Rx of ZOFRAN given. Patient educated on indication of medication including possible reaction and side effects. Opportunity to ask questions provided and answered.
== END 2021-02-02 15:43 | disposition home or self-care (01) ==
LOC: MED 11:32
DX: R11.2 Nausea with vomiting, unspecified (principal); Z20.822 Contact with and (suspected) exposure to COVID-19; R51.9 Headache, unspecified; J45.909 Unspecified asthma, uncomplicated; Z88.0 Allergy status to penicillin; Z79.899 Other long term (current) drug therapy; Z90.49 Acquired absence of other specified parts of digestive tract; Z90.710 Acquired absence of both cervix and uterus
CPT/HCPCS: 81002; 96361; 96374; 99283; J2405; J7030; U0003

== ENCOUNTER 2021-03-23 12:58 | Emergency (ER) | payer OTHER ==
[~2021-03-23] VITALS: Ht 162.6 cm; Wt 90.7 kg
[~2021-03-23 12:58] MED LIST changes: +ONDA4TAB PO
[2021-03-23 13:09] VITALS: BP 140/79
--- NOTE | 2021-03-23 13:23 | NUR ---
DR. TAMAYO EVALUATING PATIENT AT BEDSIDE
--- NOTE | 2021-03-23 13:50 | NUR ---
PATIENT AWAKE SITTING IN BED, RESPIRATIONS EVEN AND UNLABORED, NO SIGNS OF DISTRESS NOTED AT THIS TIME. ALL PATIENT NEEDS MET AT THIS TIME. WILL CONTINUE TO MONITOR.
[2021-03-23] MEDS ORDERED: NITR100C7 PO (14:24)
[2021-03-23] MEDS ORDERED: BENZ1LOZ98 PO (14:29)
[2021-03-23 14:44] VITALS: BP 140/79
--- NOTE | 2021-03-23 14:44 | NUR ---
Patient discharged with v/s stable. Written and verbal after care instructions ABOUT URINARY TRACT INFECTION given and explained. Patient alert, oriented and verbalized understanding of instructions. Ambulatory with steady gait. All questions addressed prior to discharge. ID band removed. Patient advised to follow up with PMD. Rx of MACROBID 100 MG CAPSULE given.
--- NOTE | 2021-03-23 14:52 | NUR ---
The patient's care was reviewed and supervised by Shira Stephens RN.
[2021-03-23 16:37] LABS: APPEARANCE,URINE CLEAR (CLEAR); BILIRUBIN,URINE NEGATIVE (NEGATIVE); BLOOD, URINE 1+ (NEGATIVE); COLOR,URINE YELLOW (YELLOW); LEUKOCYTE ESTERASE ,URINE NEGATIVE (NEGATIVE); NITRITE, URINE NEGATIVE (NEGATIVE); UGLUCOSE NEGATIVE (NEGATIVE)
[2021-03-23 19:03] LABS: RBC,URINE 0-5 /HPF (0-5); WBC,URINE 0-5 /HPF (0-5)
[2021-03-23 19:04] LABS: CALCIUM OXALATE CRYSTALS,UR None Seen /HPF (None Seen); COARSE GRANULAR CASTS,URINE None Seen /LPF (None Seen); FINE GRANULAR CASTS,URINE None Seen /LPF (None Seen); HYALINE CASTS, URINE None Seen /LPF (None Seen); OTHER CASTS, URINE None Seen /LPF (None Seen); OTHER CRYSTALS,URINE None Seen /HPF (None Seen); RED BLOOD CELL CASTS,URINE None Seen /LPF (None Seen); TRICHOMONAS,URINE None Seen /HPF (None Seen); TRIPLE PHOSPHATE CRYSTAL,UR None Seen /HPF (None Seen); URIC ACID CRYSTALS,URINE None Seen /HPF (None Seen); URINE AMORPHOUS URATE None Seen /HPF (None Seen); WAXY CASTS,URINE None Seen /LPF (None Seen); YEAST,URINE None Seen /HPF (None Seen)
== END 2021-03-23 14:44 | disposition home or self-care (01) ==
LOC: MED 12:58
DX: N30.00 Acute cystitis without hematuria (principal); H65.192 Other acute nonsuppurative otitis media, left ear; J03.90 Acute tonsillitis, unspecified; B34.9 Viral infection, unspecified; R59.1 Generalized enlarged lymph nodes; J45.909 Unspecified asthma, uncomplicated; Z79.899 Other long term (current) drug therapy; Z88.0 Allergy status to penicillin
CPT/HCPCS: 81001; 81025; 87086; 99283

== ENCOUNTER 2021-06-12 11:08 | Emergency (ER) | payer OTHER ==
[~2021-06-12 11:08] MED LIST changes: +BENZ-300 PO
== END 2021-06-12 11:27 | disposition left against medical advice (07) ==
LOC: MED 11:08
DX: R05.9 Cough, unspecified (principal); Z53.21 Procedure and treatment not carried out due to patient leaving prior to being seen by health care provider

== ENCOUNTER 2021-07-22 14:57 | Emergency (ER) | payer OTHER ==
[~2021-07-22] VITALS: Ht 162.6 cm; Wt 104.3 kg
[2021-07-22 15:08] VITALS: BP 123/79
[2021-07-22] MEDS ORDERED: KETOROLAC 60 MG/2 ML VIAL IM ONE (15:30)
[2021-07-22] MEDS ORDERED: IBUP-2213 PO (15:47)
[2021-07-22] MEDS ORDERED: ONDA8TAB87 PO (15:47)
[2021-07-22] MEDS ORDERED: LOPE-289 PO (15:47)
--- NOTE | 2021-07-22 16:18 | NUR ---
Patient discharged with v/s stable. Written and verbal after care instructions ABOUT NAUSEA AND VOMITING AND ABDOMINAL PAIN given and explained. Patient alert, oriented and verbalized understanding of instructions. Ambulatory with steady gait. All questions addressed prior to discharge. ID band removed. Patient advised to follow up with PMD. Rx of IBUPROFEN, IMODIUM, AND ZOFRAN given. Patient educated on indication of medication including possible reaction and side effects. Opportunity to ask questions provided and answered.
== END 2021-07-22 16:18 | disposition home or self-care (01) ==
LOC: MED 14:57
DX: R10.13 Epigastric pain (principal); R11.2 Nausea with vomiting, unspecified; R19.7 Diarrhea, unspecified; J45.909 Unspecified asthma, uncomplicated; Z79.899 Other long term (current) drug therapy; Z88.0 Allergy status to penicillin; Z90.710 Acquired absence of both cervix and uterus
CPT/HCPCS: 81002; 81025; 96372; 99283; J1885

== ENCOUNTER 2021-12-30 17:20 | Emergency (ER) | payer OTHER ==
[~2021-12-30] VITALS: Ht 162.6 cm; Wt 100.7 kg
[~2021-12-30 17:20] MED LIST changes: +LOPE-289 PO; +ONDA8TAB87 PO
[2021-12-30 18:11] VITALS: BP 141/83
--- NOTE | 2021-12-30 18:23 | NUR ---
Patient ambulated to bed 5.
--- NOTE | 2021-12-30 18:25 | NUR ---
AMB TO ER BED 5
--- NOTE | 2021-12-30 18:44 | NUR ---
36 y/o female bib self with c/o headache, body aches, chills and cough. Patient had a fever of 103 last night. Patient tested herself for COVID today and was negative. Patient has been taking Motrin with minimal relief. Patient states 2 other family members are sick at home. Medical History: Asthma ALLERGY: PENICILLIN
--- NOTE | 2021-12-30 18:45 | NUR ---
KATIANA Staton evaluating patient at bedside.
[2021-12-30] MEDS ORDERED: KETOROLAC 30 MG/ML VIAL IM ONE (18:55)
--- NOTE | 2021-12-30 19:04 | NUR ---
Obtained Flu swabs, walked to lab. Handed to CPT. Juany
--- NOTE | 2021-12-30 19:15 | NUR ---
Report given to TIARA Izquierdo for transfer of care.
[2021-12-30] MEDS ORDERED: PROM118S5 PO (19:17)
[2021-12-30] MEDS ORDERED: IBUP-2213 PO (19:17)
[2021-12-30] MEDS ORDERED: BENZ-300 PO (19:17)
[2021-12-30] MEDS ORDERED: ALBU0.0912 IH (19:17)
[2021-12-30 19:24] VITALS: BP 141/83
--- NOTE | 2021-12-30 19:24 | NUR ---
Chart checked and completed.
--- NOTE | 2021-12-30 19:24 | NUR ---
Patient discharged with v/s stable. Written and verbal after care instructions given and explained. Patient alert, oriented and verbalized understanding of instructions. Ambulatory with steady gait. All questions addressed prior to discharge. ID band removed. Patient advised to follow up with PMD. Rx of PROVENTIL CEPACOL IBUPROFEN PROMETHAZINE given. Patient educated on indication of medication including possible reaction and side effects. Opportunity to ask questions provided and answered.
== END 2021-12-30 19:24 | disposition home or self-care (01) ==
LOC: MED 17:20
DX: J06.9 Acute upper respiratory infection, unspecified (principal); R05.9 Cough, unspecified; R51.9 Headache, unspecified; M79.10 Myalgia, unspecified site; J45.909 Unspecified asthma, uncomplicated; Z79.899 Other long term (current) drug therapy
CPT/HCPCS: 87804; 96372; 99283; J1885

== ENCOUNTER 2022-01-01 17:14 | Emergency (ER) | payer OTHER ==
[~2022-01-01] VITALS: Ht 162.6 cm; Wt 100.7 kg
[~2022-01-01 17:14] MED LIST changes: +ALBU0.0912 IH; +PROM118S5 PO
[2022-01-01 17:21] VITALS: BP 164/88
--- NOTE | 2022-01-01 17:21 | NUR ---
36 y/o female, c/o sob, cp, cough, body aches, fever 102 temporal at home that started 4 days ago. pt states she was here 4 days ago and was given promethazine for the cough (no relief) and dx with URI. 98.4 oral temp at this time. skin is pink/warm/dry. a&o x4 with even and steady gait. pt states pain is 10/10 at this time. ermd made aware of pt. pmh: denies nka med: denies
--- NOTE | 2022-01-01 18:24 | NUR ---
PATIENT LEFT WITHOUT BEING SEEN BY DR. FAULKNER. NO FURTHER CARE PROVIDED FOR PATIENT.
== END 2022-01-01 18:24 | disposition left against medical advice (07) ==
LOC: MED 17:14
DX: R06.02 Shortness of breath (principal); Z20.822 Contact with and (suspected) exposure to COVID-19; R07.9 Chest pain, unspecified; R05.9 Cough, unspecified; M79.10 Myalgia, unspecified site; R50.9 Fever, unspecified; Z53.21 Procedure and treatment not carried out due to patient leaving prior to being seen by health care provider
CPT/HCPCS: 99283

== ENCOUNTER 2022-07-03 18:36 | Emergency (ER) | payer OTHER ==
[~2022-07-03] VITALS: Ht 162.6 cm; Wt 86.2 kg
[2022-07-03 19:59] VITALS: BP 105/67
[2022-07-03] MEDS ORDERED: LORA1T1237 PO (20:26)
[2022-07-03] MEDS ORDERED: PROM118S5 PO (20:26)
[2022-07-03] MEDS ORDERED: FLONAS NS (20:26)
[2022-07-03] MEDS ORDERED: ALBU0.0912 IH (20:26)
--- NOTE | 2022-07-03 21:08 | NUR ---
Sergio pack in [facility] - 07/03/22 at 2118 by KYLE PATIENT LEFT WITHOUT BEING SEEN BY DR. COOK. NO FURTHER CARE PROVIDED FOR PATIENT.
--- NOTE | 2022-07-03 21:08 | NUR ---
PATIENT ELOPED FROM FACILITY. DISCHARGE INSTRUCTIONS NOT GIVEN TO PATIENT. DR. COOK NOTIFIED.
--- NOTE | 2022-07-03 21:11 | NUR ---
PT. LEFT AFTER BEING SEEN BY PROVIDER. NO ANSWER AT [phone]
--- NOTE | 2022-07-03 21:12 | NUR ---
PATIENT LEFT WITHOUT BEING SEEN BY . NO FURTHER CARE PROVIDED FOR PATIENT.
== END 2022-07-03 21:19 | disposition left against medical advice (07) ==
LOC: MED 18:36
DX: J06.9 Acute upper respiratory infection, unspecified (principal); H92.03 Otalgia, bilateral; J45.909 Unspecified asthma, uncomplicated; Z79.899 Other long term (current) drug therapy
CPT/HCPCS: 99281

== ENCOUNTER 2022-07-17 18:00 | Emergency (ER) | payer OTHER ==
[~2022-07-17] VITALS: Ht 162.6 cm; Wt 86.2 kg
[~2022-07-17 18:00] MED LIST changes: +FLONAS NS
[2022-07-17 18:27] VITALS: BP 119/75
--- NOTE | 2022-07-17 20:07 | NUR ---
URINE GIVEN TO LAB.
--- NOTE | 2022-07-17 21:49 | NUR ---
AT TIME OF D/C PT NOT FOUND IN LOBBY OR OUTSIDE. PT LEFT W/O D/C INSTRUCTIONS
== END 2022-07-17 21:49 | disposition home or self-care (01) ==
LOC: MED 18:00
DX: M25.512 Pain in left shoulder (principal); R07.89 Other chest pain; R07.81 Pleurodynia; M54.2 Cervicalgia; J45.909 Unspecified asthma, uncomplicated; Z79.899 Other long term (current) drug therapy; Z98.84 Bariatric surgery status
CPT/HCPCS: 71101; 73030; 81025; 99284

== ENCOUNTER 2022-10-01 12:54 | Emergency (ER) | payer OTHER ==
[~2022-10-01] VITALS: Ht 162.6 cm; Wt 74.8 kg
[2022-10-01 13:19] VITALS: BP 116/70; PULSE 79; RESP 17; TEMP 97.4; O2SAT 98
[2022-10-01 15:01] VITALS: BP 111/70; PULSE 71; RESP 16; TEMP 98.5; O2SAT 98
[2022-10-01] MEDS ORDERED: ERYT5OIN58 RIGHT EYE (15:03)
[2022-10-01] MEDS ORDERED: NITR100C7 PO (15:03)
[2022-10-01] MEDS ORDERED: BPM/118S31 PO (15:03)
[2022-10-01 15:13] LABS: FLU A ANTIGEN negative (NEGATIVE); FLU B ANTIGEN NEGATIVE (NEGATIVE)
== END 2022-10-01 15:01 | disposition home or self-care (01) ==
LOC: MED 12:54
DX: J06.9 Acute upper respiratory infection, unspecified (principal); H10.89 Other conjunctivitis; B96.89 Other specified bacterial agents as the cause of diseases classified elsewhere; N39.0 Urinary tract infection, site not specified; Z20.822 Contact with and (suspected) exposure to COVID-19; J45.909 Unspecified asthma, uncomplicated; Z98.890 Other specified postprocedural states; Z90.710 Acquired absence of both cervix and uterus; Z79.899 Other long term (current) drug therapy; Z79.2 Long term (current) use of antibiotics; Z79.1 Long term (current) use of non-steroidal anti-inflammatories (NSAID)
CPT/HCPCS: 81002; 81025; 99283

== ENCOUNTER 2023-02-04 10:21 | Emergency (ER) | payer OTHER ==
[~2023-02-04] VITALS: Ht 167.6 cm; Wt 81.6 kg
[~2023-02-04 10:21] MED LIST changes: +BROM118S70 PO; +ERYT5OIN58 RIGHT EYE
[2023-02-04 10:57] VITALS: BP 122/74; PULSE 89; RESP 18; TEMP 98; O2SAT 98
[2023-02-04 11:56] LABS: BASOPHILS % (AUTO) 0.1 % (0.0-2.0); EOSINOPHILS # (AUTO) 0.2 K/uL (0-0.4); EOSINOPHILS % (AUTO) 1.3 % (0.0-4.0); HEMATOCRIT 42.5 % (36-48); HEMOGLOBIN 14.5 g/dL (12.0-16.0); LYMPHOCYTES # (AUTO) 0.8 K/uL (2.5-16.5); LYMPHOCYTES % (AUTO) 4.7 % (20.5-51.1); MEAN CORPUSCULAR HEMOGLOBIN 30 pg (27-31); MEAN CORPUSCULAR HGB CONC 34 g/dL (33-37); MEAN CORPUSCULAR VOLUME 87.7 fL (80-94); MONOCYTES # (AUTO) 0.8 K/uL (0.8-1.0); MONOCYTES % (AUTO) 4.4 % (1.7-9.3); NEUTROPHILS # (AUTO) 15.8 K/uL (1.8-7.7); NEUTROPHILS % (AUTO) 89.5 % (42.2-75.2); PLATELET COUNT (AUTO) 280 K/uL (140-450); RED BLOOD CELL COUNT(AUTO) 4.84 MIL/uL (4.20-5.40); RED CELL DISTRIBUTION WIDTH 13.4 % (11.6-13.7); WHITE BLOOD COUNT (AUTO) 17.6 K/uL (4.8-10.8)
[2023-02-04 12:10] LABS: ANION GAP 15.3 (8-16); CALCIUM 8.8 mg/dL (8.5-10.1); CARBON DIOXIDE 26.5 mmol/L (21-32); CREATININE 0.8 mg/dL (0.6-1.3); POTASSIUM 3.8 mmol/L (3.5-5.1)
[2023-02-04] MEDS ORDERED: KETOROLAC 30 MG/ML VIAL IVP ONE (13:20)
[2023-02-04] MEDS ORDERED: LOPERAMIDE 2 MG CAP PO ONE (13:20)
[2023-02-04] MEDS ORDERED: ACETAMINOPHEN EXTRA STRENGTH 500 MG TAB PO ONE (13:20)
[2023-02-04] MEDS ORDERED: NACL 0.9% 1,000 ML IV ONE (13:20)
[2023-02-04] MEDS ORDERED: ONDANSETRON 4 MG/2 ML VIAL IVP ONE (13:20)
[2023-02-04] MEDS ORDERED: metroNIDAZOLE 500 MG/NS PREMIX 100 ML IV ONE (13:25)
[2023-02-04] MEDS ORDERED: CIPROFLOXACIN 250 MG TAB PO ONE (13:25)
[2023-02-04 13:59] LABS: LACTIC ACID 0.8 mmol/L (0.4-2.0)
[2023-02-04] MEDS ORDERED: CIPR500T4 PO (13:59)
[2023-02-04] MEDS ORDERED: ONDA-188 PO (13:59)
[2023-02-04] MEDS ORDERED: LOPE1TAB14 PO (13:59)
[2023-02-04] MEDS ORDERED: FAMO-92 PO (13:59)
[2023-02-04 14:06] LABS: APPEARANCE,URINE CLEAR (CLEAR); BILIRUBIN,URINE 1+ (NEGATIVE); BLOOD, URINE TRACE-I (NEGATIVE); COLOR,URINE YELLOW (YELLOW); LEUKOCYTE ESTERASE ,URINE NEGATIVE (NEGATIVE); NITRITE, URINE NEGATIVE (NEGATIVE); PROTEIN,URINE 1+ (NEGATIVE); UGLUCOSE NEGATIVE (NEGATIVE); UROBILINOGEN,URINE 0.2 EU/dL (0.2 - 1)
[2023-02-04 14:15] LABS: ICTOTEST NEGATIVE (NEGATIVE)
[2023-02-04 14:19] LABS: BACTERIA,URINE 10-30 (MOD) /HPF (None Seen); MUCUS,URINE 1+ /LPF (None Seen); RBC,URINE 0-5 /HPF (0-5); SQUAMOUS EPITHELIAL CELL,UR 4-10 (MOD) /LPF (0-3 (FEW))
[2023-02-04 14:49] VITALS: O2SAT 100
[2023-02-04 16:06] VITALS: BP 102/76; PULSE 97; RESP 18; TEMP 98; O2SAT 98
== END 2023-02-04 16:06 | disposition home or self-care (01) ==
LOC: MED 10:21
DX: A08.4 Viral intestinal infection, unspecified (principal); J45.909 Unspecified asthma, uncomplicated; Z79.899 Other long term (current) drug therapy
CPT/HCPCS: 36415; 74176; 80048; 81001; 81025; 83605; 83690; 85025; 87086; 96365; 96375; 99285; G0482; J1885; J2405; J3490; J7030

== ENCOUNTER 2023-08-05 13:19 | Emergency (ER) | payer OTHER ==
[~2023-08-05] VITALS: Ht 162.6 cm; Wt 81.4 kg
[~2023-08-05 13:19] MED LIST changes: +CIPR500T4 PO; +FAMO-92 PO; +LOPE1TAB14 PO
[2023-08-05 13:33] VITALS: BP 96/62; PULSE 68; RESP 16; TEMP 98.3; O2SAT 98
[2023-08-05 15:29] LABS: APPEARANCE,URINE SL CLOUDY (CLEAR); BILIRUBIN,URINE NEGATIVE (NEGATIVE); BLOOD, URINE NEGATIVE (NEGATIVE); COLOR,URINE YELLOW (YELLOW); LEUKOCYTE ESTERASE ,URINE NEGATIVE (NEGATIVE); NITRITE, URINE NEGATIVE (NEGATIVE); PH,URINE 6.5 (5.0-9.0); PROTEIN,URINE NEGATIVE (NEGATIVE); UGLUCOSE NEGATIVE (NEGATIVE); UROBILINOGEN,URINE 0.2 EU/dL (0.2 - 1)
[2023-08-05 15:34] VITALS: BP 103/67; PULSE 70; RESP 18; TEMP 98; O2SAT 98
[2023-08-05 15:35] LABS: BASOPHILS % (AUTO) 0.3 % (0.0-2.0); EOSINOPHILS # (AUTO) 0.6 K/uL (0-0.4); EOSINOPHILS % (AUTO) 4.4 % (0.0-4.0); HEMATOCRIT 37.3 % (36-48); HEMOGLOBIN 12.4 g/dL (12.0-16.0); LYMPHOCYTES # (AUTO) 3.1 K/uL (2.5-16.5); LYMPHOCYTES % (AUTO) 24.7 % (20.5-51.1); MEAN CORPUSCULAR HEMOGLOBIN 29 pg (27-31); MEAN CORPUSCULAR HGB CONC 33 g/dL (33-37); MEAN CORPUSCULAR VOLUME 88.6 fL (80-94); MONOCYTES # (AUTO) 0.9 K/uL (0.8-1.0); MONOCYTES % (AUTO) 6.9 % (1.7-9.3); NEUTROPHILS % (AUTO) 63.7 % (42.2-75.2); PLATELET COUNT (AUTO) 266 K/uL (140-450); RED BLOOD CELL COUNT(AUTO) 4.21 MIL/uL (4.20-5.40); RED CELL DISTRIBUTION WIDTH 13.5 % (11.6-13.7); WHITE BLOOD COUNT (AUTO) 12.6 K/uL (4.8-10.8)
[2023-08-05 15:46] LABS: ANION GAP 12.9 (8-16); CARBON DIOXIDE 27.2 mmol/L (21-32); CREATININE 0.6 mg/dL (0.6-1.3); POTASSIUM 4.1 mmol/L (3.5-5.1)
[2023-08-05 16:14] LABS: ALBUMIN 3.3 g/dL (3.4-5.0); BILIRUBIN,DIRECT 0.1 mg/dL (0.0-0.3); TOTAL BILIRUBIN 0.2 mg/dL (0.0-1.0); TOTAL PROTEIN, SERUM 7.2 g/dL (6.4-8.2)
== END 2023-08-05 16:48 | disposition home or self-care (01) ==
LOC: MED 13:19
DX: N83.202 Unspecified ovarian cyst, left side (principal); J45.909 Unspecified asthma, uncomplicated; Z79.899 Other long term (current) drug therapy; Z90.710 Acquired absence of both cervix and uterus; Z98.890 Other specified postprocedural states
CPT/HCPCS: 36415; 80048; 80076; 81003; 81025; 83690; 85025; 99284